=== PATIENT | female | born 1955 | race Caucasian/White ===

== ENCOUNTER 2017-02-24 09:29 | Emergency (ER) | payer OTHER ==
[~2017-02-24] VITALS: Ht 175.3 cm; Wt 69.0 kg
[~2017-02-24 09:29] MED LIST: HYDR25SU23 PR; HYDR26CR PR; HYDR30CR91 PR; IBUP-1542 PO
[2017-02-24 09:39] VITALS: Ht 175.3 cm; Wt 69.0 kg
[2017-02-24] MEDS ORDERED: CETI10CA PO (11:32)
[2017-02-24] MEDS ORDERED: FLUT9.9S NASAL (11:32)
[2017-02-24] MEDS ORDERED: NAPH15DR OP (11:36)
[2017-02-24] MEDS ORDERED: POLY10DR19 BOTH EYES (11:36)
--- NOTE | 2017-02-24 15:39 | ERD ---
ER Documentation Chief Complaint Date/Time DATE: 02/24/17 TIME: 15:35 Chief Complaint EYE PAIN WITH REDNESS AND SWELLING HPI This a 61-year-old female presents to the emergency department today complaining of bilateral eye redness and itching this morning. States she also has some nasal congestion. Denies any vision changes, difficulty seeing, pain. ROS All systems reviewed and are negative except as per history of present illness. Medications Home Meds Active Scripts Polymyxin B Sulfate-TMP* (Polymyxin B-TMP Eye Drops*) 10 Ml Drops, 1 DROP BOTH EYES QID for 7 Days, EA Prov:LAILA ANNE PA-C 02/24/17 Naphazoline Hcl/Phenir Mal (Naphcon-A Eye Drops) 15 Ml Drops, 15 ML OP 1 gtt each q 6 hours for 5 Days, #1 BOTTLE Prov:LAILA ANNE PA-C 02/24/17 Fluticasone Propionate (Flonase Allergy Relief) 9.9 Ml [place].susp, 1 SPRAY NASAL BID, #1 BOTTLE TO EACH NOSTRIL Prov:LAILA ANNE PA-C 02/24/17 Cetirizine Hcl* (Zyrtec*) 10 Mg Capsule, 10 MG PO DAILY, #14 TAB.CHEW Prov:LAILA ANNE PA-C 02/24/17 Hydrocortisone* Rectal (Protozone-HC*) 30 Gm Cr, 1 APPLIC DE BID Y for ITCHING for 7 Days, EA Prov:CARMEN NGUYỄN MD 06/04/16 Hydrocortisone* Rectal (Preparation H* Cream) 1% - 26 Gm Cream.gm., 1 APPLIC DE BID for 7 Days, TUB Prov:CARMEN NGUYỄN MD 06/04/16 Hydrocortisone Acetate (Anusol-Hc) 25 Mg Supp.rect, 1 SUPP DE BID Y for HEMORROID PAIN/ITCHING, #12 SUPP.RECT Prov:CARMEN NGUYỄN MD 06/04/16 Ibuprofen* (Motrin*) 600 Mg Tab, 600 MG PO Q6, #20 TAB Prov:SHELDON ORNELAS PA-C 02/24/15 Allergies Allergies: Coded Allergies: No Known Allergy (Unverified , 02/24/17) PMhx/Soc History of Surgery: Yes (Inguinal hernia) Anesthesia Reaction: No Hx Neurological Disorder: No Hx Respiratory Disorders: No Hx Cardiac Disorders: Yes (HTN) Hx Psychiatric Problems: No Hx Miscellaneous Medical Probl: No Hx Alcohol Use: Yes (Occasionally) Hx Substance Use: No Hx Tobacco Use: Yes Smoking Status: Current every day smoker Physical Exam Vitals Vital Signs Date Time Temp Pulse Resp B/P Pulse Ox O2 Delivery O2 Flow Rate FiO2 02/24/17 09:39 98.6 79 18 166/107 98 Physical Exam Const: No acute distress Head: Atraumatic Eyes: Lateral conjunctival erythema. No purulent drainage. No orbital swelling PERRLA. EOM intact. ENT: Seems normal. Nose no drainage. Throat erythema no exudate Neck: Full range of motion..~ No meningismus. Resp: Clear to auscultation bilaterally Cardio: Regular rate and rhythm, no murmurs Skin: No petechiae or rashes Neur: Awake and alert Psych: Normal Mood and Affect Procedures/MDM This a 61-year-old female presents the emergency department today complaining of bilateral eye redness, itching and nasal congestion. I did try to obtain a visual acuity however patient is illiterate and is unable to read letters. She was able to see how many fingers I was holding up. Patient denied any difficulty seeing or blurred vision. She had no pain on extraocular movement. And I do not feel the patient required further workup at this time. Low suspicion for acute narrow angle glaucoma given the patient denies any vision changes. Low suspicion for orbital cellulitis, preseptal cellulitis, foreign body, hyphema, globe rupture. Symptoms at this time is consistent with allergic conjunctivitis especially given her nasal congestion however I will also treat the patient for possible bacterial conjunctivitis. Patient given a prescription for Naphcon, Polytrim, Flonase. Given referral information for [facility]. At this time the patient is stable for discharge and outpatient management. Patient should follow up with their PCP in the next 1-2 days. They may return to the emergency department sooner for any persistent or worsening of symptoms. Patient understood and agreed with the plan. Departure Diagnosis: Primary Impression: Eye problem Condition: Fair Patient Instructions: Conjunctivitis, Non-Specific Referrals: your PCP [facility] Hours: Mon - Fri 9:00 AM - 5:00 PM Additional Instructions: Llame al doctor TIM y heri minnie RICHARD PARA DENTRO DE 1-2 [place].Dgale a la secretaria que nosotros le instruimos hacer esta richard.Avise o llame si javier condicin se empeora antes de la richard. Regresa aqui si peor o no mejor. Take all medications as prescribed. Make an appt at [facility] LAILA ANNE PA-C Feb 24, 2017 15:39
== END 2017-02-24 11:53 | disposition home or self-care (01) ==
LOC: FTE 09:29
DX: H10.9 Unspecified conjunctivitis (principal); I10 Essential (primary) hypertension; F17.210 Nicotine dependence, cigarettes, uncomplicated
CPT/HCPCS: 99283

== ENCOUNTER 2018-01-25 17:02 | Emergency (ER) | END 2018-01-25 23:00 | disposition home or self-care (01) ==